=== PATIENT | female | born 1995 ===

== ENCOUNTER → 2025-04-28 08:35 | Outpatient (REF) | payer OTHER, SELFPAY ==
--- NOTE | 2025-04-25 08:34 | PN.DIAED06 ---
Meal Plan - Gestational
- Breakfast
Gestational Diabetes Meal Plan Name: 1800 calories
Breakfast - Total Carbohydrate (grams): 30 (2 carbs: 1 carb = 15 grams)
Breakfast - Starch Carbohydrate: 1 (carbs: starch, milk, fruit)
Breakfast - Fruit Carbohydrate: 0 (no fruit or juice before noon)
Breakfast - Milk Carbohydrate: 1
Breakfast - Nonstarchy Vegetables: Yes
Breakfast - Meat/Protein: 1 (1 oz protein = 7grams)
Breakfast - Fat: 2 (1 serving fat = 5 grams)
- Morning Snack
Morning Snack - Total Carbohydrate (grams): 30 (2 carbs)
Morning Snack - Starch Carbohydrate: 1
Morning Snack - Fruit Carbohydrate: 0 (no fruit or juice before noon)
Morning Snack - Milk Carbohydrate: 1
Morning Snack - Nonstarchy Vegetables: Yes
Morning Snack - Meat/Protein: 0.5
Morning Snack - Fat: 0
- Lunch
Lunch - Total Carbohydrate (grams): 45 (3 carbs)
Lunch - Starch Carbohydrate: 2
Lunch - Fruit Carbohydrate: 1
Lunch - Milk Carbohydrate: 0
Lunch - Nonstarchy Vegetables: Yes
Lunch - Meat/Protein: 2
Lunch - Fat: 1
- Afternoon Snack
Afternoon Snack - Total Carbohydrate (grams): 30 (2 carbs)
Afternoon Snack - Starch Carbohydrate: 1
Afternoon Snack - Fruit Carbohydrate: 1
Afternoon Snack - Milk Carbohydrate: 0
Afternoon Snack - Nonstarchy Vegetables: Yes
Afternoon Snack - Meat/Protein: 1
Afternoon Snack - Fat: 0
- Dinner
Dinner - Total Carbohydrate (grams): 45 (3 carbs)
Dinner - Starch Carbohydrate: 2
Dinner - Fruit Carbohydrate: 0
Dinner - Milk Carbohydrate: 1
Dinner - Nonstarchy Vegetables: Yes
Dinner - Meat/Protein: 2
Dinner - Fat: 2
- Evening Snack
Evening Snack - Total Carbohydrate (grams): 30 (2 carbs)
Evening Snack - Starch Carbohydrate: 1
Evening Snack - Fruit Carbohydrate: 0
Evening Snack - Milk Carbohydrate: 1
Evening Snack - Nonstarchy Vegetables: Yes
Evening Snack - Meat/Protein: 1
Evening Snack - Fat: 1
--- NOTE | 2025-04-28 08:15 | PN.DE ---
Diabetes Education
- -
04/28/2025 GESTATIONAL DIABETES CONSULT
Met with Ms. Boston today for medical nutrition therapy. She is with an BARTOLOME of 05/28/2025.
Explained glucose metabolism in body and what occurs during to cause increase blood sugar. Discussed importance of keeping BS well controlled to avoid complications to the baby during and after (macrosomia, hypoglycemia). Explained
to Tara that she is at increased risk of developing T2DM in the future.
Discussed macronutrients, provided with 1800 amanda GDM meal plan. Educated on importance of eating 3 meals and 3 snacks, spread out throughout the day. Discussed physical activity recommendations of 30 minutes per day, she has not been exercising.
Encouraged walking, especially after meals to help lower post prandial glucose.
I provided a Contour Next test strips and lancets sample kit. She just informed us that her insurance covers One Touch Verio Flex, I stated we will order next week. Educated and demonstration on proper blood sugar testing technique, testing
sites and testing pattern. She is aware to test FBS and 2 hr pp each meal. Expected results for FBS <95 mg/dL and 2 hr pp <120 mg/dL. Noted for non fasting blood sugar of 76 mg/dl this morning. Log sheet provided for her to record results, she will
send a 4-day meal log with all her FBG and 2hr Post prandial glucose numbers to this office for review. In addition, she will send all her glucose readings to [facility] every Monday.
She verbalized understanding, and was encouraged to reach out should she require insulin.
== END ==
LOC: DES 08:35
PROVIDERS: ATTENDING PHYSICIAN Obstetrics & Gynecology
DX: O24.419 Gestational diabetes mellitus in pregnancy, unspecified control (principal)
CPT/HCPCS: 99078

== ENCOUNTER → 2025-05-08 10:52 | Outpatient (REF) | payer OTHER, SELFPAY | LOC: PNTC 10:52 | PROVIDERS: ATTENDING PHYSICIAN Obstetrics & Gynecology | DX: O24.419 Gestational diabetes mellitus in pregnancy, unspecified control (principal) | CPT/HCPCS: 59025; 76816 ==

== ENCOUNTER 2025-05-11 09:22 | Inpatient (IN) | payer OTHER, SELFPAY ==
[2025-05-11 09:28] VITALS: BMI 28.6
[2025-05-11 09:34] VITALS: BP 123/76
[2025-05-11] MEDS: LR 1000 IV ×2 (10:15→13:54)
[2025-05-11 10:26] LABS: Glucose - Point of Care 107 mg/dl (70-99)
[2025-05-11 10:40] LABS: Hematocrit 34.7 % (37.0-47.0); Hemoglobin 11.5 g/dL (12.0-16.0); Mean Corp Hgb Conc. 33.1 g/dL (33.0-37.0); Mean Corpuscular Volume 78.3 fL (81.0-99.0); Nucleated Red Blood Cells % 0 %; Platelet Count 294 10^3/uL (130-400); Red Cell Dist. Width 14.6 % (11.5-14.5)
[2025-05-11] MEDS: PITOCIN 30 UNITS/NSS 500 ML IV ×2 (10:58→19:42)
[2025-05-11 13:57] LABS: Glucose - Point of Care 103 mg/dl (70-99)
[2025-05-11] MEDS: SUBLIMAZE 100 MCG EPIDURAL (15:09)
[2025-05-11] MEDS: FENTANYL/BUPIVACAINE 100 EPIDURAL (15:09)
[2025-05-11 17:16] LABS: Glucose - Point of Care 85 mg/dl (70-99)
[2025-05-11 18:59] LABS: Glucose - Point of Care 112 mg/dl (70-99)
[2025-05-12 03:44] LABS: Hematocrit 32.6 % (37.0-47.0); Hemoglobin 10.9 g/dL (12.0-16.0)
[2025-05-12] MEDS: PRENATAL PLUS 1 TABLET PO (08:25)
[2025-05-12] MEDS: SENOKOT-S 1 TABLET PO (08:25)
[2025-05-13] MEDS: PRENATAL PLUS 1 TABLET PO (08:54)
[2025-05-13] MEDS: SENOKOT-S 1 TABLET PO (08:54)
[2025-05-13 14:06] LABS: Syphilis/T. pallidum Ab Reflex Negative (Negative)
== END 2025-05-13 11:40 | disposition home or self-care (01) | DRG 807 ==
LOC: LDRP 09:22
PROVIDERS: ADMITTING PHYSICIAN Obstetrics & Gynecology
PROC: 0UQMXZZ Repair Vulva, External Approach (ICD-10-PCS; 2025-05-11)
PROC: 0HQ9XZZ Repair Perineum Skin, External Approach (ICD-10-PCS; 2025-05-11)
PROC: 10E0XZZ Delivery of Products of Conception, External Approach (ICD-10-PCS; 2025-05-11)
DX: O24.429 Gestational diabetes mellitus in childbirth, unspecified control (principal); Z37.0 Single live birth; Z3A.37 37 weeks gestation of pregnancy; O70.0 First degree perineal laceration during delivery
CPT/HCPCS: 88307; 36415; 82962; 85014; 85018; 85025; 86780; 86850; 86900; 86901